=== PATIENT | female | born 1995 | race Caucasian/White ===

== ENCOUNTER 2016-08-28 05:53 | Emergency (ER) | payer MEDICAID ==
[2016-08-28] MEDS ORDERED: NS 500 ML IV ONE ×2 (06:25→07:07)
--- NOTE | 2016-08-28 06:50 | EDPHY ---
H & P Stated Complaint: R flank pain Time Seen by Provider: 08/28/16 06:26 HPI/ROS: Chief complaint flank pain HPI 21-year-old female who suffers from chronic pain syndrome of chronic kidney disease. She sees pain management for this. She has been seen in this hospital multiple times with multiple admissions. Currently she is on a pain regimen of a fentanyl patch 75 mcg Q 48 hours and oxycodone 20 mg in addition to frequent infusions of final again Benadryl and Reglan. Her pain management doctor recently changed her fentanyl patch from 50 mcg to 75 mcg 1 month ago. She has been having reactions to the new patches which are causing skin irritation and itching over her abdomen where she places her patches. She has not had a patch on for the last 24 hours because of the reaction she has been having. She is presenting this morning complaining of increasing pain and feeling like she is going into withdrawal. She does state that she has an appointment with her pain management doctor at 9 o'clock this morning. She denies any fevers or chills. She is chronically tachycardic and takes a beta- katherine for this. She frequently gets heart rates up into the high 100 when she stands up per mom and this is her baseline. No new chest pain or shortness of breath. No fevers or chills. Today she is presenting with the hopes of getting some pain medication that will get her to her pain management appointment at 9 o'clock this morning. ROS: 10 point Review of Systems is negative except as noted in the HPI. Medications: Fentanyl Metoprolol Oxycodone Lorazepam Phenergan Benadryl Reglan Prozac Xarelto Allergies: Penicillin, morphine, tramadol, NSAIDs, azithromycin, vancomycin, sulfa Physical exam: Gen: Awake, Alert, uncomfortable appearing, morbidly obese HEENT: Nose: no rhinorrhea Eyes: PERRLA, EOMI Mouth: Dry mucous membranes Neck: Supple, no JVD Chest: nontender, lungs clear to auscultation Heart: Tachycardic, no murmur Abd: Soft, non-tender, no guarding, she is got rash over her entire anterior abdominal region with areas of adhesive demarcated around sites. There is some slurry a eldridge and erythema. This is consistent with contact dermatitis Back: no CVA tenderness, no midline tenderness Ext: no edema, non-tender Skin: no rash Neuro: CN II-XII intact, Sensation grossly intact, Strength 5/5 in bilateral upper and lower extremities - Personal History LMP (Females 10-55): Extended Cycle BCP/Inj Current Tetanus/Diphtheria Vaccine: Yes Current Tetanus Diphtheria and Acellular Pertussis (TDAP): Yes - Medical/Surgical History Hx Asthma: Yes Hx Chronic Respiratory Disease: No Hx Diabetes: No Hx Cardiac Disease: Yes Hx Renal Disease: Yes Hx Cirrhosis: No Hx Alcoholism: No Hx HIV/AIDS: No Hx Splenectomy or Spleen Trauma: No Other PMH: Shantell-danlos syndrome. Loin pain hematuria syndrome, medularry sponge disease,. pancreatitis; syncopal episoids, adrenal insuff, pancreatitis , yi, tonsils - Social History Smoking Status: Never smoked Constitutional: Initial Vital Signs Temperature (C) 37.7 C 08/28/16 06:00 Heart Rate 158 H 08/28/16 06:00 Respiratory Rate 18 08/28/16 06:00 Blood Pressure 135/110 H 08/28/16 06:00 O2 Sat (%) 97 08/28/16 06:00 O2 Delivery Mode Room Air Allergies/Adverse Reactions: Penicillins Allergy (Severe, Verified 08/28/16 05:57) Anaphylaxis hydrocortisone Allergy (Intermediate, Verified 08/28/16 05:57) NSAIDS (Non-Steroidal Anti-Inflamma Allergy (Unknown, Verified 08/28/16 05:57) Other-Enter Comments ciprofloxacin [From Cipro] Allergy (Verified 08/28/16 05:57) morphine Allergy (Verified 08/28/16 05:57) shellfish derived Allergy (Verified 08/28/16 05:57) Sulfa (Sulfonamide Antibiotics) Allergy (Verified 08/28/16 05:57) Home Medications: Medication Instructions Recorded Promethazine HCl [Phenergan 25mg 25 mg PO Q6 03/27/15 (*)] LORazepam [Ativan (*)] 1 mg PO TID 06/12/15 Metoprolol Tartrate [Lopressor 25 25 mg PO BID #60 tab 06/21/15 mg (*)] fentaNYL [Duragesic] 50 mcg TD Q48H 08/25/15 Benadryl 08/28/16 Oxycodone HCl 08/28/16 Medical Decision Making ED Course/Re-evaluation: Complex 21-year-old female presenting with worsening pain and likely narcotic withdrawal secondary to not having had her fentanyl patch for the last 24 hours. She is tachycardic however this is her baseline. She also has contact dermatiti at the anterior abdominal wall secondary to the fentanyl patch likely the adhesive. I have discussed at length with both the patient and her mother. They would very much like to attend their pain management appointment at 9 o' clock this morning. I think that this would be appropriate. Plan will be to give her IV fluid hydration and IV analgesia. Will give her a dose of Dilaudid now. This is with the understanding that she is a chronic pain patient chronic narcotics and she is in narcotic withdrawal at this time. She is also under the care of a pain management doctor who is prescribing these pain medications. Once her symptoms are improved will discharge her for follow-up for with her pain management team. Departure - Departure Disposition: Home, Routine, Self-Care Clinical Impression: Chronic pain, Tachycardia, Narcotic withdrawal, Contact dermatitis Condition: Good Instructions: Chronic Pain (ED), Contact Dermatitis (ED), Tachycardia (ED), Opioid Withdrawal (ED) Additional Instructions: Go directly to your pain management appointment after discharge from the emergency department. Referrals: CHERYL CONDON [Other] - As per Instructions
[2016-08-28] MEDS ORDERED: HYDROmorphONE/DILAUDID 1 MG/ML SYR IVP ONE ×2 (06:51→07:51)
[2016-08-28] MEDS ORDERED: PROMETHAZINE HCL 25 MG/ML INJ IVP ONE (07:53)
[2016-08-28 08:03] VITALS: RESP 20
[2016-08-28 08:50] VITALS: BP 122/64; PULSE 122; TEMP 98.2; O2SAT 96
== END 2016-08-28 08:53 | disposition home or self-care (01) ==
DX: R10.9 Unspecified abdominal pain (principal); G89.29 Other chronic pain; R00.0 Tachycardia, unspecified; F11.23 Opioid dependence with withdrawal; L25.9 Unspecified contact dermatitis, unspecified cause; J45.909 Unspecified asthma, uncomplicated; Z79.01 Long term (current) use of anticoagulants
CPT/HCPCS: 96374; J1170; J2550

== ENCOUNTER 2016-09-16 17:51 | Emergency (ER) | payer MEDICAID ==
[2016-09-16 18:06] VITALS: RESP 18; TEMP 99.1
[2016-09-16] MEDS ORDERED: HYDROmorphONE/DILAUDID 1 MG/ML SYR ONE (18:42)
[2016-09-16] MEDS ORDERED: PROMETHAZINE HCL 25 MG/ML INJ ONE (18:42)
--- NOTE | 2016-09-16 18:50 | EDPHY ---
H & P Stated Complaint: Flare up of kidney disease;n/v Time Seen by Provider: 09/16/16 18:15 HPI/ROS: CHIEF COMPLAINT: Acute exacerbation of chronic pain syndrome HISTORY OF PRESENT ILLNESS: The patient presents to the ED with an acute exacerbation of chronic pain syndrome, reported chronic kidney kidney condition she is scheduled to undergo nephrectomy for in [place] later this year. The patient has a port. The patient states she has an exacerbation of pain requiring IV narcotics and IV fluids. The patient was in the emergency department 1 month ago with a similar presentation. The patient reports that she has chronic ongoing pain and associated hematuria. She denies fever. She denies cough or congestion. She reports moderate symptoms. The patient was last admitted to the hospital approximately 1 year ago. During that time she was admitted for 12 days and had a fairly extensive evaluation of her abdominal pain. She had a normal gastric emptying study and a normal upper endoscopy. REVIEW OF SYSTEMS: A comprehensive 10 point review of systems is otherwise negative aside from elements mentioned in the history of present illness. Source: Patient, Family Exam Limitations: No limitations - Personal History LMP (Females 10-55): Unknown Current Tetanus Diphtheria and Acellular Pertussis (TDAP): Yes - Medical/Surgical History Hx Asthma: Yes Hx Chronic Respiratory Disease: No Hx Diabetes: No Hx Cardiac Disease: Yes Hx Renal Disease: Yes Hx Cirrhosis: No Hx Alcoholism: No Hx HIV/AIDS: No Hx Splenectomy or Spleen Trauma: No Other PMH: Shantell-danlos syndrome. Loin pain hematuria syndrome, medularry sponge disease,. pancreatitis; syncopal episoids, adrenal insuff, pancreatitis , yi, tonsils - Social History Smoking Status: Never smoked - Physical Exam Exam: General Appearance: Obese female, no acute distress Eyes: Pupils equal and round no pallor or injection ENT, Mouth: Slightly dry mucous membranes Respiratory: There are no retractions, lungs are clear to auscultation Cardiovascular: Tachycardic Gastrointestinal: Minimal tenderness to palpation in the right flank and right mid quadrant Neurological: A&O, normal motor function, normal sensory exam, normal cranial nerves Skin: Warm and dry, no rashes Musculoskeletal: Neck is supple nontender Extremities: symmetrical, full range of motion Constitutional: Initial Vital Signs Temperature (C) 37.3 C 09/16/16 18:00 Heart Rate 142 H 09/16/16 18:00 Respiratory Rate 18 09/16/16 18:00 Blood Pressure 115/79 09/16/16 18:00 O2 Sat (%) 98 09/16/16 18:00 O2 Delivery Mode Room Air Allergies/Adverse Reactions: Penicillins Allergy (Severe, Verified 08/28/16 05:57) Anaphylaxis hydrocortisone Allergy (Intermediate, Verified 08/28/16 05:57) NSAIDS (Non-Steroidal Anti-Inflamma Allergy (Unknown, Verified 08/28/16 05:57) Other-Enter Comments ciprofloxacin [From Cipro] Allergy (Verified 08/28/16 05:57) morphine Allergy (Verified 08/28/16 05:57) shellfish derived Allergy (Verified 08/28/16 05:57) Sulfa (Sulfonamide Antibiotics) Allergy (Verified 08/28/16 05:57) fentanyl patch Allergy (Intermediate, Uncoded 09/16/16 18:08) severe local skin reaction Home Medications: Medication Instructions Recorded Promethazine HCl [Phenergan 25mg 25 mg PO Q6 03/27/15 (*)] LORazepam [Ativan (*)] 1 mg PO TID 06/12/15 Metoprolol Tartrate [Lopressor 25 25 mg PO BID #60 tab 06/21/15 mg (*)] Benadryl 08/28/16 Oxycodone HCl 08/28/16 Medical Decision Making ED Course/Re-evaluation: The patient had an IV established. I reviewed her past medical records. She received 2 L of normal saline. She received IV Phenergan. She will receive 1 mg of IV Dilaudid. She is accompanied by her mother. During her last hospitalization the patient appeared to elope from the hospital after the decision was made not to treat her with narcotic pain medications. I became aware of this fact after she received a single IV dose of Dilaudid. The patient did receive IV fluid rehydration. I do not feel that the patient benefits from ongoing IV narcotic therapy. I do feel that the patient can follow up with her regular physicians in [place] for management of her chronic symptoms. I discussed with the patient and her mother the fact that I do not feel that ongoing narcotic therapy would benefit the patient. They became quite upset about the fact I suggested that we could not administer any more IV Dilaudid are narcotics in the ED. They have requested that further workup be discontinued and they have left the emergency department. Differential Diagnosis: Differential diagnosis considered includes acute on chronic abdominal pain, functional abdominal pain, dehydration, bowel obstruction, perforation - Data Points Laboratory Results: Laboratory Results 09/16/16 20:00 09/16/16 20:00 09/16/16 09/16/16 20:00 20:00 WBC REJ RBC TNP Hgb TNP Hct TNP MCV TNP MCH TNP MCHC TNP RDW TNP Plt Count TNP MPV TNP Neut % (Auto) TNP Lymph % (Auto) TNP Beltrami % (Auto) TNP Eos % (Auto) TNP Baso % (Auto) TNP Nucleat RBC Rel Count TNP Absolute Neuts (auto) TNP Absolute Lymphs (auto) TNP Absolute Monos (auto) TNP Absolute Eos (auto) TNP Absolute Basos (auto) TNP Absolute Nucleated RBC TNP Immature Gran % TNP Immature Gran # TNP Sodium 139 mEq/L mEq/L (134-144) Potassium 4.4 mEq/L mEq/L (3.5-5.2) Chloride 111 mEq/L H mEq/L (97-110) Carbon Dioxide 18 mEq/l L mEq/l (22-31) Anion Gap 10 mEq/L mEq/L (8-16) BUN 9 mg/dL mg/dL (7-23) Creatinine 0.7 mg/dL mg/dL (0.6-1.0) Estimated GFR > 60 Glucose 82 mg/dL mg/dL (70-100) Calcium 9.2 mg/dL mg/dL (8.5-10.4) Total Bilirubin 0.4 mg/dL mg/dL (0.1-1.4) Conjugated Bilirubin 0.4 mg/dL mg/dL (0.0-0.5) Unconjugated Bilirubin 0.0 mg/dL mg/dL (0.0-1.1) AST 29 IU/L IU/L (14-46) ALT 34 IU/L IU/L (9-52) Alkaline Phosphatase 112 IU/L IU/L (38-126) Total Protein 6.9 g/dL g/dL (6.3-8.2) Albumin 3.7 g/dL g/dL (3.5-5.0) Lipase 136.0 IU/L IU/L (23-300) Departure - Departure Disposition: Home, Routine, Self-Care Clinical Impression: Chronic pain syndrome, POTS (postural orthostatic tachycardia syndrome), Shantell -Danlos syndrome Condition: Good Additional Instructions: 1. Follow up with your regular physician as scheduled. Referrals: CHERYL FARIA MD [Other] - As per Instructions
[2016-09-16 20:11] VITALS: BP 132/94; PULSE 144; O2SAT 96
[2016-09-16 20:35] LABS: ALANINE AMINOTRANSFERASE 34 IU/L (9-52); ALBUMIN 3.7 g/dL (3.5-5.0); ALKALINE PHOSPHATASE 112 IU/L (38-126); ANION GAP 10 mEq/L (8-16); ASPARTATE AMINOTRANSFERASE 29 IU/L (14-46); BILIRUBIN,TOTAL 0.4 mg/dL (0.1-1.4); BILIRUBIN-CONJUGATED 0.4 mg/dL (0.0-0.5); CALCIUM 9.2 mg/dL (8.5-10.4); CARBON DIOXIDE 18 mEq/l (22-31); CHLORIDE 111 mEq/L (97-110); CREATININE 0.7 mg/dL (0.6-1.0); GLOMERULAR FILTRATION RATE > 60; GLUCOSE 82 mg/dL (70-100); POTASSIUM 4.4 mEq/L (3.5-5.2); SODIUM 139 mEq/L (134-144); TOTAL PROTEIN 6.9 g/dL (6.3-8.2)
== END 2016-09-16 20:09 | disposition home or self-care (01) ==
DX: G89.4 Chronic pain syndrome (principal); I49.8 Other specified cardiac arrhythmias; Q79.6 Ehlers-Danlos syndromes; J45.909 Unspecified asthma, uncomplicated
CPT/HCPCS: J1170; J2550